=== PATIENT | female | born 1965 | race Caucasian/White ===

== ENCOUNTER 2017-09-04 12:54 | Emergency (ER) | payer OTHER ==
[~2017-09-04] VITALS: Ht 172.7 cm; Wt 135.2 kg
[~2017-09-04 12:54] MED LIST: AMBEREN PO; ASPIRIN EC81 M1 PO; CALCIUM 600 +1 EAC8 PO; CARISOPRODOL 3350 MG PO; CARISOPRODOL PO; CIPROFLOXACIN500 M1 PO; COZAAR 25 MG TA25 MG PO; DUONEB 2.5-0.5 M3 ML INH; DYAZIDE; ESTROGEN TOP; FISH OIL 1,4001 EACH PO; FISHOIL PO; FLEXERIL PO; FLONASE; FLONASE 0.05%50 MCG NASAL; FOLIC ACID 1 MG1 MG PO; HYDROCORTISONE 01 OZ; MEDROLDOSEPACK PO; METOPROLOL SUCC25 M1; MOBIC7.5 MG PO; MULTIVITAMINS PO; OMEPRAZOLE40 MG PO; PERCOCET 5-3251 EACH PO; PREPARATION H26 GM TRANSDERM; ROBAXIN 750 MG750 M1 PO; Synthroid PO; TOPROL XL50 MG PO; TRAMADOL 50 MG50 MG PO; VIVELLE1 EAC1 TRANSDERM
[2017-09-04] MEDS ORDERED: LOPRESSOR25 PO (13:20)
[2017-09-04 13:32] LABS: ABSOLUTE BASOPHILS 0.1 thou/uL (0.0-0.2); ABSOLUTE EOSINOPHILS 0.1 thou/uL (0.0-0.7); ABSOLUTE LYMPHOCYTES 2.6 thou/uL (0.8-5.3); ABSOLUTE MONOCYTES 0.6 thou/uL (0.0-1.2); ABSOLUTE NEUTROPHILS 6.1 thou/uL (1.6-8.1); BASOPHILS 0.7 %; EOSINOPHILS 1.5 %; HEMATOCRIT 38.5 % (37.0-47.0); HEMOGLOBIN 12.6 gm/dL (12.0-15.0); LYMPHOCYTES 27.4 %; MCHC 32.6 g/dL (28.0-37.0); MONOCYTES 6.3 %; MPV 7.2 fl. (7.2-11.1); NUCLEATED RBCS 0 /100WBC; PLATELET COUNT* 289 thou/uL (150-400); POLYS 64.1 %; RBC 4.33 mil/uL (4.20-5.00); RDW-CV 14.8 % (10.5-14.5); WBC 9.5 thou/uL (4.0-11.0)
[2017-09-04 13:41] LABS: ANION GAP 7 mmol/L (7-16); BUN 12 mg/dL (7-18); CALCIUM 8.5 mg/dL (8.5-10.1); CHLORIDE 106 mmol/L (98-107); CO2 32 mmol/L (21-32); GLUCOSE 101 mg/dL (70-99); POTASSIUM 3.7 mmol/L (3.5-5.1); SODIUM 145 mmol/L (136-145)
[2017-09-04 13:48] LABS: ALBUMIN 3.4 g/dL (3.4-5.0); ALKALINE PHOSPHATASE 95 U/L (46-116); LIPASE 95 U/L (73-393); SGOT 18 U/L (15-37); SGPT 34 U/L (30-65); TOTAL BILIRUBIN 0.7 mg/dL (<0.1-1.0); TOTAL PROTEIN 7.2 g/dL (6.4-8.2); TROPONIN-I LEVEL <0.06 ng/mL (<0.06)
[2017-09-04 14:37] LABS: URINE BILIRUBIN NEGATIVE (Negative); URINE BLOOD NEGATIVE (Negative); URINE CLARITY CLEAR; URINE COLOR YELLOW; URINE GLUCOSE-RANDOM NEGATIVE (Negative); URINE KETONES NEGATIVE (Negative); URINE LEUKOCYTES-REFLEX NEGATIVE (Negative); URINE NITRITE-REFLEX NEGATIVE (Negative); URINE PROTEIN NEGATIVE (Negative); URINE SPECIFIC GRAVITY >= 1.030 (1.005-1.030); URINE UROBILINOGEN 0.2 E.U./dl (0.2-1.0)
--- NOTE | 2017-09-04 15:21 | EKG ---
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: Jacobo GUERRA : 1965 Requested By: Genoveva Brennan Order Number: [id number] MD: Danny Velasquez Measurements Intervals [place] Rate: 75 P: 11 TX: 157 QRS: -13 QRSD: 105 T: 5 QT: 390 QTc: 436 Interpretive Statements Sinus rhythm Low voltage, precordial leads Baseline wander in lead(s) V1 Compared to ECG 11/13/2016 18:02:34 Low QRS voltage now present Electronically Signed On 09-04-2017 15:21:22 PLANNING DIRECTOR by Danny Velasquez [email or web address] <ELECTRONICALLY SIGNED> By: Danny Velasquez MD, [facility] 09/04/17 1521 1309 1309 Danny Velasquez MD, [facility] /EPI
[2017-09-04 16:34] VITALS: BP 152/92
[2017-10-14] MEDS ORDERED: DOCUSATE CALCI240 MG PO (09:12)
[2017-10-14] MEDS ORDERED: FLONASE 0.05%50 MCG NASAL (09:13)
[2017-10-14] MEDS ORDERED: LEVOXYL137 MCG PO (09:14)
[2017-10-14] MEDS ORDERED: REQUIP 1 MG TABL1 M1 PO (09:16)
[2017-10-14] MEDS ORDERED: PROAIR RESPICL90 MCG INH (09:16)
[2017-10-14] MEDS ORDERED: TRAMADOL 50 MG50 MG PO (09:17)
[2017-10-14] MEDS ORDERED: VITAMIN D1000 UNI1 PO (09:17)
[2017-11-04] MEDS ORDERED: NAPROSYN500 MG PO (09:20)
[2017-11-04] MEDS ORDERED: ZANAFLEX4 MG PO (09:20)
[2017-11-11] MEDS ORDERED: CYMBALTA30 MG PO (11:36)
== END 2017-09-04 16:35 | disposition home or self-care (01) ==
LOC: M.ERS 12:54
PROVIDERS: Nurse Practitioner Family
DX: K44.9 Diaphragmatic hernia without obstruction or gangrene (principal); R10.10 Upper abdominal pain, unspecified; I10 Essential (primary) hypertension; K21.9 Gastro-esophageal reflux disease without esophagitis; E03.9 Hypothyroidism, unspecified; Z90.49 Acquired absence of other specified parts of digestive tract; Z88.5 Allergy status to narcotic agent; Z98.890 Other specified postprocedural states; Z90.710 Acquired absence of both cervix and uterus

== ENCOUNTER 2017-09-08 17:16 | Emergency (ER) | payer OTHER ==
[~2017-09-08] VITALS: Ht 172.7 cm; Wt 135.2 kg
[~2017-09-08 17:16] MED LIST changes: +LOPRESSOR25 PO
[2017-09-08 18:46] VITALS: BP 119/80
[2017-10-14] MEDS ORDERED: DOCUSATE CALCI240 MG PO (09:12)
[2017-10-14] MEDS ORDERED: FLONASE 0.05%50 MCG NASAL (09:13)
[2017-10-14] MEDS ORDERED: LEVOXYL137 MCG PO (09:14)
[2017-10-14] MEDS ORDERED: REQUIP 1 MG TABL1 M1 PO (09:16)
[2017-10-14] MEDS ORDERED: PROAIR RESPICL90 MCG INH (09:16)
[2017-10-14] MEDS ORDERED: VITAMIN D1000 UNI1 PO (09:17)
[2017-10-14] MEDS ORDERED: TRAMADOL 50 MG50 MG PO (09:17)
[2017-11-04] MEDS ORDERED: ZANAFLEX4 MG PO (09:20)
[2017-11-04] MEDS ORDERED: NAPROSYN500 MG PO (09:20)
[2017-11-11] MEDS ORDERED: CYMBALTA30 MG PO (11:36)
== END 2017-09-08 18:47 | disposition home or self-care (01) ==
LOC: M.ERS 17:16
DX: G89.29 Other chronic pain (principal); M54.9 Dorsalgia, unspecified; M79.632 Pain in left forearm; I10 Essential (primary) hypertension; E03.9 Hypothyroidism, unspecified; Z90.49 Acquired absence of other specified parts of digestive tract; Z86.2 Personal history of diseases of the blood and blood-forming organs and certain disorders involving the immune mechanism; Z88.5 Allergy status to narcotic agent; W01.0XXA Fall on same level from slipping, tripping and stumbling without subsequent striking against object, initial encounter; Y93.89 Activity, other specified; Y92.89 Other specified places as the place of occurrence of the external cause; Y99.8 Other external cause status

== ENCOUNTER → 2017-10-14 | Outpatient (CLI) | payer OTHER ==
[~2017-10-14] MED LIST changes: +CYMBALTA30 MG PO; +DOCUSATE CALCI240 MG PO; +LEVOXYL137 MCG PO; +NAPROSYN500 MG PO; +PROAIR RESPICL90 MCG INH; +REQUIP 1 MG TABL1 M1 PO; +VITAMIN D1000 UNI1 PO; +ZANAFLEX4 MG PO
--- NOTE | 2017-10-17 09:57 | PAINCON ---
[facility] [address] [place] [address] PAIN MANAGEMENT CONSULTATION Name: SANTINO GHOSH [id number] Admission: 10/14/17 Attend Phys: Bhavani Galindo Discharge: Date of : 65 Report #: [id number] THIS REPORT FOR: //name// CC: Toñito Ortiz DATE OF SERVICE: 10/14/2017 The patient is a 52-year-old female, seen in consultation at the request of Dr. Guadalupe for management of acute on chronic back and right lumbar radicular pain. The patient notes she has had chronic pain for years, though past year without antecedent trauma or overuse pain has been getting worse. She did have an epidural injection with transient relief by Pain Center greater than a year ago. She notes current pain is in the mid back with a spasm component, radiating to the back, right leg. She notes that with abdominal flexion she gets acute mid back spasm that radiates into the abdomen. She describes pain that is constant, burning, aching, crushing, gnawing, rates anywhere from a 3-6 on a VAS. The patient denies bowel or bladder continence changes or specific myelopathic symptoms. REVIEW OF SYSTEMS: Complete review of systems is attached to chart and gone over with the patient. She is , seen in the company of her who is supportive. She does not smoke, drink alcohol to excess. History of hypertension, treated with metoprolol. Gastroesophageal reflux for which she takes omeprazole. Hypothyroidism for years, though she did have a thyroidectomy last April. Currently, still trying to titrate appropriate Synthroid dose. Remaining review of systems is noncontributory. PAST SURGICAL HISTORY: Includes anterior cervical disk fusion several years ago with significant improvement of cervical radicular and possible myelopathic symptoms. 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 She states pain does interfere with function. She has been off work episodically. Pain impact score averages about 36/70. PHYSICAL EXAMINATION: VITAL SIGNS: Reveals a 5 feet 8 inches, 305 pound female, BMI is elevated at 46.4 kg per meter squared. Blood pressure 138/83, pulse 65, [place]ir[place] 18. [place] [address] PAIN MANAGEMENT CONSULTATION Name: SANTINO GHOSH Room: [facility]#: [id number] Admission: 10/14/17 Attend Phys: Bhavani Galindo Discharge: Date of : 65 Report #: [id number] NEUROLOGIC: Cranial nerves 2-12 are grossly intact. HEENT: Pupils equal, react to light and accommodation. Extraocular muscles are intact. There is no nystagmus or lateral gaze deviation. Thyroid is surgically absent. NECK: Cervical range of motion is full (fairly remarkable for the patient status post ACDF C4-5-6). Upper extremity strength is preserved and symmetric. HEART: Regular and rhythmical with a grade 1-2/6 systolic ejection murmur. LUNGS: Clear. ABDOMEN: Markedly endomorphic build. MUSCULOSKELETAL: Rises from chair using armrest. Gait is tandem. Lumbar flexion is good at 90 degrees. She is tender in the mid lumbar area from about T11 through L1. Also, a second discrete area of tenderness from about L4 down in the low back. Right hip flexion and right foot dorsiflexion are limited and strength about 3/5. Otherwise, all other muscle groups are about 4-5 to objective testing. Does have some ecchymosis on the right knee, the patient was in the ER status post a fall with some resultant trauma including the aforementioned ecchymosis approximately 2 weeks ago. DIAGNOSTIC STUDIES: Include MRI of the thoracic spine from August of this year, noting lower portion of the upper lumbar spine shows some anterior wedging of the vertebral bodies with mild kyphosis. There is a tiny right paracentral protruded disk at T6-T7 and T7-T8 with minimal effacement of thecal sac. These do not appear to correlate with radicular symptoms at these levels. Lumbar spine diagnostic study from 09/29/2017 notes lateral tear in the right L4-L5 disk with moderate facet arthropathy, L5-S1 notes moderate facet arthropathy as well. ASSESSMENT: 1. Lumbar radiculopathy, right L4 pattern. 2. Thoracolumbar spondylosis. RECOMMENDATIONS: We will seek authorization for lumbar epidural injection under fluoroscopy at L4-L5. If this affords good relief of the right lumbar radicular pain, we will move forward with fluoroscopy targeted joint injections L4-L5 and L5-S1 bilaterally, consideration for Y70-I5-5 facets if indicated clinically. Thank you for allowing me to participate in the patient's care. I will keep you abreast of her progress. <ELECTRONICALLY SIGNED> By: Rakesh Ortiz DO 10/17/17 0957 1225 1312Rakesh Ortiz DO /nt
== END ==
LOC: M.PC 02:53
DX: M47.895 Other spondylosis, thoracolumbar region (principal); M54.16 Radiculopathy, lumbar region

== ENCOUNTER → 2017-10-21 | Outpatient (CLI) | payer OTHER ==
--- NOTE | 2017-10-22 09:37 | PAINCON ---
[address] [address] PAIN MANAGEMENT CONSULTATION Name: SANTINO GHOSH Room: [facility]#: [id number] Admission: 10/21/17 Attend Phys: Bhavani Galindo Discharge: Date of : 65 Report #: [id number] THIS REPORT FOR: //name// CC: Toñito Ortiz DATE OF SERVICE: 10/21/2017 The patient is a very pleasant 52-year-old female seen in consultation 10/14/2017, diagnosed with symptomatic lumbar radiculopathy. We sought authorization for epidural injection under fluoroscopy. The patient presents to pain clinic today for that procedure. Notes her subjective pain score a 6-7 on the VAS. PHYSICAL EXAMINATION: Otherwise unchanged, BMI is 46.2 kg per meter squared, blood pressure 145/89, pulse 65, respirations 16. Pain is in the low back, left side worse than right. Seems to increase as the day goes on. Again, no significant changes from prior visit. ASSESSMENT: Symptomatic lumbar radiculopathy. PROCEDURE: Lumbar epidural injection under fluoroscopy. PROCEDURE NOTE: After both written and informed consent to include risk of spinal cord damage, increased pain, weakness and dural puncture, the patient was taken to the fluoroscopy suite, placed in the prone position. After sterile prep and drape, a skin wheal with lidocaine was raised. A 4-1/2 inch 20-gauge epidural Tuohy needle was inserted in the midline at L4-L5 with good loss to resistance. Negative aspiration for cerebrospinal fluid or blood was noted. Then 1 mL of Omnipaque under biplanar fluoroscopy showed good spread within the epidural space. This was followed with 80 mg of triamcinolone plus 1 mL of 1.5% preservative-free Xylocaine, 0.5 mL Xylocaine was then injected to flush the needle; it was removed. The patient was monitored for an appropriate period of time and discharged in good and stable condition. <ELECTRONICALLY SIGNED> By: Rakesh Ortiz DO 10/22/17 0937 1343 [id number] Ortiz DO /nt
== END | disposition home or self-care (01) ==
LOC: M.PC 04:41
DX: M54.16 Radiculopathy, lumbar region (principal); G89.29 Other chronic pain; I10 Essential (primary) hypertension; Z87.19 Personal history of other diseases of the digestive system; Z88.8 Allergy status to other drugs, medicaments and biological substances; Z79.899 Other long term (current) drug therapy; Z87.09 Personal history of other diseases of the respiratory system

== ENCOUNTER → 2017-11-04 | Outpatient (CLI) | payer OTHER ==
--- NOTE | 2017-11-09 06:53 | PAINCON ---
[facility] [address] [place] [address] PAIN MANAGEMENT CONSULTATION Name: SANTINO GHOSH Room: [facility]#: [id number] Admission: 11/04/17 Attend Phys: Bhavani Galindo Discharge: Date of : 65 Report #: [id number] THIS REPORT FOR: //name// CC: Toñito Ortiz DATE OF SERVICE: 11/04/2017 PAIN CLINIC NOTE HISTORY OF PRESENT ILLNESS: The patient is a 52-year-old female, prior seen in the pain clinic on 10/21/2017, given epidural injection at that time at L4-L5. The original consult was 10/14/2017. She returns to pain clinic today noting about 50% relief of baseline pain, still has pain in the low back, left hip and leg, exacerbated with standing, walking and bending. She is taking Naprosyn 500 mg b.i.d. She just ran out of this medication and noted that it was significantly helping. She returns to pain clinic today noting that while the injection did afford good relief, it did cause some polydipsia following the injection. PHYSICAL EXAMINATION: Notes a pleasant 52-year-old female, BMI of 45.3 kilograms per meter squared, blood pressure 140/78, pulse 68, and respirations 16. Rises from chair using armrest. Still has antalgic gait with the positive straight leg raise on the left, slight decreased left leg strength compared to right. ASSESSMENT: Symptomatic lumbar radiculopathy by clinical exam and history, incremental improvement following 1 epidural injection. RECOMMENDATION: 1. We will renew 500 mg Naprosyn b.i.d., 60 tablets with 1 refill. 2. We will seek authorization for repeat epidural injection under fluoroscopy at L5-S1. We will use 60 mg of triamcinolone due to a concern for likely hyperglycemia causing her polydipsia. <ELECTRONICALLY SIGNED> By: Rakesh Ortiz DO 11/09/17 0653 1415 0052Rakesh Ortiz DO /nt
== END ==
LOC: M.PC 01:42
DX: M54.16 Radiculopathy, lumbar region (principal)

== ENCOUNTER → 2017-11-11 | Outpatient (CLI) | payer OTHER ==
--- NOTE | 2017-11-12 07:19 | PAINCON ---
[facility] [address] [place] [address] PAIN MANAGEMENT CONSULTATION Name: SANTINO GHOSH Room: [facility]#: [id number] Admission: 11/11/17 Attend Phys: Bhavani Galindo Discharge: Date of : 65 Report #: [id number] THIS REPORT FOR: //name// CC: Toñito Ortiz DATE OF SERVICE: 11/11/2017 The patient is a 52-year-old female, prior seen in the Pain Clinic on 11/04/2017. She was initially seen in consultation on 10/14/2017, diagnosed with symptomatic lumbar radiculopathy, given a single epidural injection on 10/21/2017. With ongoing subjective improvement at last visit, we sought an authorization for repeat epidural injection under fluoroscopy. She returns to Pain Clinic today. She notes ongoing 50% relief of the lumbar radicular pain. She wished to repeat injection under fluoroscopy today. She notes cramping in her legs is not as severe as before. She rates pain a 5-6 on a VAS. PHYSICAL EXAMINATION: Shows 5 feet 8 inches, 291-pound female, BMI is 44.4 kg/m2. Blood pressure 148/101, pulse 75, respirations 16. Complains of diffuse tenderness in the low back, left buttock, radiating down the leg. Left side is worse than the right. She incidentally notes of midline thoracic paravertebral muscle spasm. There are palpable spasm and trigger points noted here. Upper extremity strength is preserved. ASSESSMENT: 1. Symptomatic lumbar radiculopathy with clinical exam and history. Recommendation: Repeat epidural injection under fluoroscopy as discussed at last visit. 2. Myofascial pain with primarily thoracic paravertebral muscle spasm. Recommendations: Discussion with the patient today about therapeutic option. We would like to start the patient on Cymbalta 30 mg 1 a day for 30 days. If this affords good relief, we will enable her to have 5 refills. If she does not note significant improvement, we will have patient discontinue and follow up for consideration for trigger point injections in the bilateral thoracic paravertebral muscles, epicenter being about T5 to T9. ASSESSMENT: Symptomatic lumbar radiculopathy. PROCEDURE: Lumbar epidural injection under fluoroscopy. PROCEDURE NOTE: After both written and informed consent to include risk of spinal cord damage, increased pain, weakness and dural puncture, [place] [address] PAIN MANAGEMENT CONSULTATION Name: SANTINO GHOSH Room: [facility]#: [id number] Admission: 11/11/17 Attend Phys: Bhavani Galindo Discharge: Date of : 65 Report #: [id number] taken to the fluoroscopy suite, placed in the prone position. After sterile prep and drape, a skin wheal with lidocaine was raised. A 22-gauge epidural Tuohy needle was inserted in the midline at L4-L5 with good loss to resistance. Negative aspiration for cerebrospinal fluid or blood was noted. Then 1 mL of Omnipaque under biplanar fluoroscopy showed good spread within the epidural space. This was followed with 80 mg of triamcinolone plus 1 mL of 1.5% preservative-free Xylocaine, 0.5 mL Xylocaine was then injected to flush the needle; it was removed. The patient was monitored for an appropriate period of time and discharged in good and stable condition. <ELECTRONICALLY SIGNED> By: Rakesh Ortiz DO 11/12/17 0719 1411 [id number] Ortiz DO /nt
== END | disposition home or self-care (01) ==
LOC: M.PC 03:38
DX: M54.16 Radiculopathy, lumbar region (principal); G89.29 Other chronic pain; M79.1 Myalgia; I10 Essential (primary) hypertension; Z98.890 Other specified postprocedural states; Z87.19 Personal history of other diseases of the digestive system; Z88.8 Allergy status to other drugs, medicaments and biological substances; Z79.899 Other long term (current) drug therapy

== ENCOUNTER 2018-03-08 15:02 | Inpatient (IN) | payer OTHER ==
[~2018-03-08] VITALS: Ht 172.7 cm; Wt 123.4 kg
[2018-03-08 15:06] VITALS: BP 204/106
[2018-03-08 15:21] LABS: ABSOLUTE BASOPHILS 0.1 thou/uL (0.0-0.2); ABSOLUTE EOSINOPHILS 0.1 thou/uL (0.0-0.7); ABSOLUTE LYMPHOCYTES 3.1 thou/uL (0.8-5.3); ABSOLUTE MONOCYTES 0.7 thou/uL (0.0-1.2); ABSOLUTE NEUTROPHILS 5.9 thou/uL (1.6-8.1); BASOPHILS 0.6 %; EOSINOPHILS 1.4 %; HEMATOCRIT 38.2 % (37.0-47.0); HEMOGLOBIN 12.3 gm/dL (12.0-15.0); LYMPHOCYTES 31.1 %; MCH 27.3 pg (26.0-34.0); MCHC 32.3 g/dL (28.0-37.0); MCV 84.3 fL (80.0-100.0); MONOCYTES 6.7 %; MPV 7.7 fl. (7.2-11.1); NUCLEATED RBCS 0 /100WBC; PLATELET COUNT* 326 thou/uL (150-400); POLYS 60.2 %; RBC 4.53 mil/uL (4.20-5.00); RDW-CV 15.8 % (10.5-14.5); WBC 9.9 thou/uL (4.0-11.0)
[2018-03-08 15:50] LABS: ANION GAP 7 mmol/L (7-16); BUN 20 mg/dL (7-18); CALCIUM 8.7 mg/dL (8.5-10.1); CHLORIDE 101 mmol/L (98-107); CO2 31 mmol/L (21-32); GLUCOSE 88 mg/dL (70-99); POTASSIUM 3.7 mmol/L (3.5-5.1); SODIUM 139 mmol/L (136-145)
[2018-03-08 16:01] LABS: ALBUMIN 3.8 g/dL (3.4-5.0); ALKALINE PHOSPHATASE 103 U/L (46-116); LIPASE 116 U/L (73-393); MAGNESIUM 2.1 mg/dL (1.8-2.4); NT-PRO BRAIN NAT PEPTIDE 213 pg/mL (<300); SGOT 23 U/L (15-37); SGPT 31 U/L (30-65); TOTAL BILIRUBIN 0.6 mg/dL (<0.1-1.0); TOTAL PROTEIN 7.9 g/dL (6.4-8.2); TROPONIN-I LEVEL <0.06 ng/mL (<0.06)
[2018-03-08 18:09] VITALS: BP 131/82
[2018-03-08 18:30] VITALS: BP 150/86
[2018-03-08 18:31] VITALS: BP 154/84
[2018-03-09] VITALS: BP 109/63; BP 132/62
[2018-03-09 04:00] VITALS: BP 100/62
[2018-03-09 08:30] VITALS: BP 150/89
[2018-03-09 12:43] VITALS: BP 133/81
--- NOTE | 2018-03-09 16:23 | 2DMMODE ---
[place] [address] 2 D/M-MODE ECHOCARDIOGRAM Name: SANTINO GHOSH Room: [place] [address] ADM IN [facility]#: [id number] Admission: 03/08/18 Attend Phys: Nadya Alston Discharge: Date of : 65 Date of Service: 03/09/18 1622 Report #: [id number] THIS REPORT FOR: //name// APPROVED REPORT Study performed: 03/09/2018 13:28:24 EXAM: Comprehensive 2D, Doppler, and color-flow Echocardiogram Patient Location: In-Patient Room #: [facility] Status: routine BSA: 2.33 HR: 66 bpm BP: 100/62 mmHg Rhythm: NSR Other Information Study Quality: Good Indications Chest Pain 2D Dimensions LVEF(%): 64.12 (>50%) IVSd: 11.90 (7-11mm) LVOT Diam: 20.72 (18-24mm) LVDd: 42.27 mm PWd: 10.74 (7-11mm) Ascending Ao: 34.48 (22-36mm) LVDs: 27.64 (25-40mm) Aortic Root: 33.40 mm Quintanilla's LVEF: 64.12 % Volumes Left Atrial Volume (Systole) LA ESV Index: 29.90 mL/m2 Aortic Valve AoV Peak Juan.: 1.27 m/s AO Peak Gr.: 6.46 mmHg LVOT Max P.59 mmHg AO Mean Gr.: 3.70 mmHg LVOT Mean P.49 mmHg LVOT Max V: 1.07 m/s AO V2 VTI: 29.72 cm LVOT Mean V: 0.74 m/s LUIZ (VTI): 2.47 cm2 LVOT V1 VTI: 21.76 cm Mitral Valve E/A Ratio: 1.03 [place] [address] 2 D/M-MODE ECHOCARDIOGRAM Name: SANTINO GHOSH Room: [address] IN .R.#: [id number] Admission: 03/08/18 Attend Phys: Nadya Alston Discharge: Date of : 65 Date of Service: 03/09/18 1622 Report #: [id number] MV Decel. Time: 265.21 ms MV E Max Juan.: 0.79 m/s MV PHT: 76.91 ms MVA (PHT): 2.86 cm2 TDI E/Lateral E': 7.18 E/Medial E': 8.78 Medial E' Juan.: 0.09 m/s Lateral E' Juan.: 0.11 m/s Pulmonary Valve PV Peak Juan.: 0.90 m/s PV Peak Gr.: 3.27 mmHg Tricuspid Valve RAP Estimate: 5.00 mmHg TR Peak Gr.: 20.30 mmHg RVSP: 25.30 mmHg PA Pressure: 25.30 mmHg Left Ventricle The left ventricle is normal size. There is normal LV segmental wall motion. There is normal left ventricular wall thickness. Left ventricular systolic function is normal. LVEF is 60-65%. Transmitral Doppler flow pattern suggests impaired LV relaxation. Right Ventricle The right ventricle is normal size. The right ventricular systolic function is normal. Atria Left atrium is mildly dilated. Right atrium is mildly dilated. Aortic Valve The aortic valve is normal in structure. No aortic regurgitation is present. There is no aortic valvular stenosis. Mitral Valve The mitral valve is normal in structure. Mild mitral regurgitation. No evidence of mitral valve stenosis. Tricuspid Valve The tricuspid valve is normal in structure. Trace tricuspid regurgitation. No pulmonary hypertension. Pulmonic Valve The pulmonary valve is normal in structure. [place] [address] 2 D/M-MODE ECHOCARDIOGRAM Name: SANTINO GHOSH Room: [address] IN [facility]#: [id number] Admission: 03/08/18 Attend Phys: Nadya Alston Discharge: Date of : 65 Date of Service: 03/09/18 1622 Report #: [id number] valvular regurgitation. Great Vessels The aortic root is normal in size. IVC is normal in size and collapses with >50% inspiration Pericardium There is no pericardial effusion. <Conclusion> The left ventricle is normal size. There is normal left ventricular wall thickness. Left ventricular systolic function is normal. LVEF is 60-65%. Transmitral Doppler flow pattern suggests impaired LV relaxation. Left atrium is mildly dilated. Right atrium is mildly dilated. Mild mitral regurgitation. Trace tricuspid regurgitation. No pulmonary hypertension. IVC is normal in size and collapses with >50% inspiration <ELECTRONICALLY SIGNED> By: Eris Parson MD, FACC 03/09/18 162 21 21 Eris Parson MD, FACC /INF
[2018-03-09 16:26] VITALS: BP 148/95
--- NOTE | 2018-03-09 17:00 | EKG ---
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
[2018-03-09 20:26] VITALS: BP 116/73
[2018-03-10] VITALS: BP 103/64
[2018-03-10 04:00] VITALS: BP 112/64
[2018-03-10 08:30] VITALS: BP 126/83
[2018-03-10 12:20] VITALS: BP 145/90
[2018-03-10 14:18] VITALS: BP 145/90
--- NOTE | 2018-03-10 16:40 | CARDNUC ---
[place] [address] CARDIAC NUCLEAR IMAGING REPORT Name: SANTINO GHOSH Room: [address] IN [facility]#: [id number] Admission: 03/08/18 Attend Phys: Nadya Alston Discharge: Date of : 65 Date of Service: 03/10/18 [facility] Report #: [id number] THIS REPORT FOR: //name// APPROVED REPORT Imaging Protocol: Stress Tc-99m/Rest Tc-99m 2 days Study performed: 03/09/2018 08:44:00 Indication: Chest pain, Hx SVT, Palpitations, Near syncope Patient Location: In-Patient Room #: 233 Stress Tech: Brittany Qiu Stress Nurse: Julieth Lloyd RN NM Tech:ULISES Holland Ht: 5 ft 7 in Wt: 272 lbs BSA: 2.30 m2 BMI: 42.59 Medical History Medical History: HTN, PVD, Obesity Medications: Metoprolol Allergies: Codeine Cardiac Risk Factors: HTN, PVD, FHX of CAD Previous Cardiac Procedures: NONE Pretest Chest Pain Characteristics: No chest pain Exercise History: Indeterminate Physical Disabilities: Back Meds Held (24 hrs): Metoprolol Resting Data Rest SPECT myocardial perfusion imaging was performed in supine position 30 minutes following the intravenous injection of 42.0 mCi of Tc-99m Sestamibi. Time of rest injection: 829 Date: 03/10/2018 Time of rest imagin The images were gated to evaluate regional wall motion and calculate left ventricular ejection fraction. Administration Route: IV Administration Site: Right AC Pharmacologic Stress Pharmacologic stress test was performed by injecting Regadenoson 0.4 mg IV push over 10-15 seconds immediately followed by the intravenous injection of 34.6 mCi of Tc-99m Sestamibi. Time of stress injection: 10:30 Date: 03/09/2018 [place] [address] CARDIAC NUCLEAR IMAGING REPORT Name: SANTINO GHOSH Room: [address] IN [facility].#: [id number] Admission: 03/08/18 Attend Phys: Nadya Alston Discharge: Date of : 65 Date of Service: 03/10/18 [facility] Report #: [id number] Administration Site: Right AC Gated Stress SPECT was performed 40 minutes after stress injection. The images were gated to evaluate regional wall motion and calculate left ventricular ejection fraction. Prone imaging was performed. Stress Test Details Stress Test: Pharmacologic stress was paired with low level exercise. Reason for pharmacologic stress test: physical limitation. HR Max Heart Rate (APMHR): 167 bpm Resting HR: 88 bpm Target HR (85% APMHR): 141 bpm Max HR Achieved: 138 bpm % of APMHR: 82 Recovery HR: 88 bpm BP Resting BP: 128/93 mmHg Recovery BP: 120/82 mmHg ECG Resting ECG: Sinus Rhythm, normal EKG Stress ECG: Sinus Tachycardia ST Change: None Arrhythmia: None Recovery ECG: Sinus Rhythm, normal EKG Recovery ST Change: None Recovery Arrhythmia: None Clinical Reason for Termination: Completed protocol Stress Symptoms: Mild chest pressure, , Dyspnea, Fatigue Exercise duration: 4 min 0 sec Exercise capacity: 2.30 METs The patient tolerated Lexiscan infusion without symptoms. Nurse Comments Pt tolerated low level exercise with Lexiscan well. Pt reported SOA, fatigue and mild chest pressure all resolved during post test recovery and with caffeine. Pt stable post test. Stress ECG Conclusion The baseline 12-lead EKG shows sinus rhythm with no significant ST or T wave abnormalities. EKGs during and [place] [address] CARDIAC NUCLEAR IMAGING REPORT Name: SANTINO GHOSH Room: [address]#: [id number] Admission: 03/08/18 Attend Phys: Nadya Alston Discharge: Date of : 65 Date of Service: 03/10/18 [facility] Report #: [id number] sinus rhythm and sinus tachycardia with no significant ST or T wave changes when compared baseline. There were no stress-induced arrhythmias. Study Quality Study: Good Artifact: No artifact Study Data At rest, the left ventricular ejection fraction was 76%.. Post stress, the left ventricular ejection was 71%.. TID = 0.94. Perfusion There is a focal fixed perfusion defect of the apex. No other significant fixed or reversible defects are identified. Wall Motion There is focal hypokinesis in the anteroapical wall. Global LV systolic function is preserved. Nuclear Conclusion ECG Findings: negative for ischemia Clinical Findings: negative for ischemia Nuclear Findings: negative for ischemia Left Ventricular Function: preserved Myocardial perfusion images show no defect to suggest ischemia. Global LV systolic function is normal. There is a focal fixed defect of the apex without associated wall motion abnormality that may suggest prior apical infarct. This is not a high risk study. <Conclusion> The baseline 12-lead EKG shows sinus rhythm with no significant ST or T wave abnormalities. EKGs during and post Lexiscan infusion show sinus rhythm and sinus tachycardia with no significant ST or T wave changes when compared baseline. There were no stress-induced arrhythmias. <ELECTRONICALLY SIGNED> By: Eris Parson MD, FACC 03/10/18 1640 1640 1640 Eris Parson MD, FACC /INF
== END 2018-03-10 17:00 | disposition home or self-care (01) | DRG 194 ==
LOC: M.ERS 15:02 → M.2W 16:21 → M.TBA-ER 16:21 → M.2W 18:22
PROVIDERS: Emergency Medicine Emergency Medical Services; ADMIT Internal Medicine
DX: R09.1 Pleurisy (principal); I47.1 Supraventricular tachycardia; Z68.41 Body mass index [BMI] 40.0-44.9, adult; E66.01 Morbid (severe) obesity due to excess calories; I10 Essential (primary) hypertension; I49.3 Ventricular premature depolarization; E06.3 Autoimmune thyroiditis; K21.9 Gastro-esophageal reflux disease without esophagitis; E89.0 Postprocedural hypothyroidism; Z90.49 Acquired absence of other specified parts of digestive tract; Z90.710 Acquired absence of both cervix and uterus; Z87.891 Personal history of nicotine dependence; Z98.1 Arthrodesis status; Z88.5 Allergy status to narcotic agent; Z82.49 Family history of ischemic heart disease and other diseases of the circulatory system

== ENCOUNTER → 2018-04-27 | Outpatient (CLI) | payer OTHER | LOC: M.CT 11:43 | DX: J34.89 Other specified disorders of nose and nasal sinuses (principal); J32.0 Chronic maxillary sinusitis; J01.91 Acute recurrent sinusitis, unspecified ==

== ENCOUNTER → 2018-10-13 | Outpatient (CLI) | payer OTHER | LOC: M.RAD 14:53 | DX: Z12.31 Encounter for screening mammogram for malignant neoplasm of breast (principal); Z13.820 Encounter for screening for osteoporosis; Z88.5 Allergy status to narcotic agent; Z88.8 Allergy status to other drugs, medicaments and biological substances; Z78.0 Asymptomatic menopausal state ==

== ENCOUNTER → 2019-02-17 | Outpatient (CLI) | payer OTHER ==
--- NOTE | 2019-02-28 08:58 | SLEEP ---
[address] [address] SLEEP STUDY REPORT Name: SANTINO GHOSH Room: [facility]#: [id number] Admission: 02/17/19 Attend Phys: Toñito Cummings DO Discharge: Date of : 65 Report #: [id number] THIS REPORT FOR: //name// CC: Toñito Cummings DO This study has been reviewed in its entirety by a board certified sleep specialist DATE OF SERVICE: 02/18/2019 HOME SLEEP STUDY ATTENDING PHYSICIAN: Toñito Cummings DO The patient is a 54-year-old who weighs 277 pounds with a BMI of 42.1. The patient's Triangle score was 11. The patient underwent home sleep study performed by [facility]. Total recording time was 673 minutes. During the night study, the patient had 14 obstructive apneas, no mixed apneas, and 76 hypopneas. No central apneas. The patient's apnea-hypopnea index was 8 per hour. No supine sleep recorded. Nocturnal oximetry study revealed an average oxygen saturation of 92% with the lowest of 78%. 45 minutes were spent in oxygen saturation of less than 90%. Mean heart rate was 62 beats per minute. IMPRESSION: 1. Mild sleep apnea-hypopnea syndrome with an AHI of 8 per hour. 2. Nocturnal hypoxia secondary to obstructive sleep apnea. RECOMMENDATIONS: 1. The patient has mild sleep apnea. I would recommend weight loss as the initial form of treatment. 2. If the patient remains clinically symptomatic or has comorbid conditions, then the patient's sleep apnea can be treated with CPAP versus oral appliance. 3. Avoid CERTIFIED LEGAL SECRETARY SPECIALIST depressants. 4. Cautioned regarding driving or operating heavy machinery until symptoms of sleep apnea resolve with the above recommendations. <ELECTRONICALLY SIGNED> By: Roverto Florence MD 02/28/19 [id number] Florence MD /nt
== END ==
LOC: M.SLEEPLAB 15:37
DX: G47.30 Sleep apnea, unspecified (principal); G47.33 Obstructive sleep apnea (adult) (pediatric); R09.02 Hypoxemia

== ENCOUNTER → 2019-06-17 | Outpatient (CLI) | payer OTHER ==
[2019-06-17 15:22] LABS: ABSOLUTE EOSINOPHILS 0.2 thou/uL (0.0-0.7); ABSOLUTE LYMPHOCYTES 2.3 thou/uL (0.8-5.3); ABSOLUTE MONOCYTES 0.4 thou/uL (0.0-1.2); ABSOLUTE NEUTROPHILS 3.2 thou/uL (1.6-8.1); BASOPHILS 0.7 %; EOSINOPHILS 2.6 %; HEMATOCRIT 39.5 % (37.0-47.0); HEMOGLOBIN 12.9 gm/dL (12.0-15.0); MCH 27.8 pg (26.0-34.0); MCHC 32.5 g/dL (28.0-37.0); MCV 85.4 fL (80.0-100.0); MONOCYTES 7.1 %; MPV 7.7 fl. (7.2-11.1); NUCLEATED RBCS 0 /100WBC; PLATELET COUNT* 275 thou/uL (150-400); POLYS 51.6 %; RBC 4.63 mil/uL (4.20-5.00); RDW-CV 14.1 % (10.5-14.5); WBC 6.1 thou/uL (4.0-11.0)
== END ==
LOC: M.LAB 14:52
PROVIDERS: Family Medicine
DX: E55.9 Vitamin D deficiency, unspecified (principal); E03.9 Hypothyroidism, unspecified; Z77.011 Contact with and (suspected) exposure to lead

== ENCOUNTER → 2019-12-14 | Outpatient (CLI) | payer BC | LOC: M.ULTRA 15:52 | PROVIDERS: ATTEND Nurse Practitioner Family | DX: R22.42 Localized swelling, mass and lump, left lower limb (principal) ==

== ENCOUNTER 2021-02-05 08:11 | Emergency (ER) | payer BC ==
[~2021-02-05] VITALS: Ht 172.7 cm; Wt 122.5 kg
[2021-02-05 08:58] LABS: URINE BILIRUBIN NEGATIVE (Negative); URINE BLOOD NEGATIVE (Negative); URINE CLARITY CLEAR; URINE COLOR YELLOW; URINE GLUCOSE-RANDOM NEGATIVE (Negative); URINE KETONES NEGATIVE (Negative); URINE LEUKOCYTES-REFLEX 1+ (Negative); URINE NITRITE-REFLEX POSITIVE (Negative); URINE PROTEIN NEGATIVE (Negative); URINE UROBILINOGEN 0.2 E.U./dl (0.2-1.0)
[2021-02-05 09:06] LABS: BACTERIA-REFLEX >30 Many /HPF (None Seen); CASTS None Seen /LPF (None Seen); CRYSTALS None Seen /LPF (None Seen); MUCUS 0-3 Light strn/LPF (None Seen); SQUAMOUS 0-3 Few /LPF (0-3); URINE RBC 0-2 Rare /HPF (0-2); URINE WBC-REFLEX 6-15 Few /HPF (0-5)
[2021-02-05] MEDS ORDERED: PHENAZOPYRIDIN200 M2 PO (09:32)
[2021-02-05] MEDS ORDERED: AUGMENTIN 875-1 EACH PO (09:32)
[2021-02-05] MEDS ORDERED: ZOFRAN ODT4 MG DISSOLVE (09:32)
[2021-02-05 09:56] VITALS: BP 142/90
== END 2021-02-05 09:57 | disposition home or self-care (01) ==
LOC: M.ERS 08:11
PROVIDERS: Emergency Medicine Emergency Medical Services
DX: N39.0 Urinary tract infection, site not specified (principal); K21.9 Gastro-esophageal reflux disease without esophagitis; E03.9 Hypothyroidism, unspecified; E89.0 Postprocedural hypothyroidism; Z88.5 Allergy status to narcotic agent; Z90.89 Acquired absence of other organs; Z90.49 Acquired absence of other specified parts of digestive tract; Z90.710 Acquired absence of both cervix and uterus; Z86.2 Personal history of diseases of the blood and blood-forming organs and certain disorders involving the immune mechanism